=== PATIENT | male | born 1975 | race African-American/Black ===

== ENCOUNTER 2017-02-03 23:20 | Emergency (ER) | payer MEDICAID ==
[~2017-02-03] VITALS: Ht 188 cm; Wt 143.2 kg
[2017-02-04 01:28] VITALS: BP 144/64
[2017-02-04] MEDS ORDERED: HYDROcodone/APAP 5/325 TABLET ONE (02:21)
[2017-02-04] MEDS ORDERED: HYDROcodone/APAP 5/325 TABLET PO ONE (02:30)
== END 2017-02-04 02:38 | disposition home or self-care (01) ==
LOC: ED 02-04 02:29
DX: S40.011A Contusion of right shoulder, initial encounter (principal); S50.01XA Contusion of right elbow, initial encounter; S60.211A Contusion of right wrist, initial encounter; S09.90XA Unspecified injury of head, initial encounter; E11.9 Type 2 diabetes mellitus without complications; J45.909 Unspecified asthma, uncomplicated; Z86.73 Personal history of transient ischemic attack (TIA), and cerebral infarction without residual deficits; I25.2 Old myocardial infarction; I25.10 Atherosclerotic heart disease of native coronary artery without angina pectoris; Z87.891 Personal history of nicotine dependence; W01.0XXA Fall on same level from slipping, tripping and stumbling without subsequent striking against object, initial encounter; Y93.89 Activity, other specified; Y92.410 Unspecified street and highway as the place of occurrence of the external cause; Y99.9 Unspecified external cause status
CPT/HCPCS: 70450; 72125; 99284